=== PATIENT | male | born 1980 ===

== ENCOUNTER 2018-02-06 19:04 | Inpatient (IN) | payer OTHER ==
[2018-02-06] MEDS ORDERED: Sodium Chloride 0.9% 1,000 ML IV ONE (19:56)
--- NOTE | 2018-02-06 20:00 | C.PDOC ---
History Of Present Illness 37 year old male presents to the ER with a complaint of RLQ pain for the past 3 days. Patient states the pain was worse 3 days ago and since then has decreased but remains constant. Patent notes the pain worsens with movement, ambulation, and coughing. Denies vomiting, diarrhea, dysuria, hematuria, or any PMHx. Time Seen by Provider: 02/06/18 19:19 Chief Complaint (Nursing): Abdominal Pain History Per: Patient History/Exam Limitations: no limitations Onset/Duration Of Symptoms: Days Current Symptoms Are (Timing): Still Present Location Of Pain/Discomfort: RLQ Radiation Of Pain To:: None Quality Of Discomfort: Unable To Describe Associated Symptoms: denies: Vomiting, Diarrhea, Urinary Symptoms Exacerbating Factors: None Alleviating Factors: None Recent travel outside of the [place]: No Past Medical History Reviewed: Historical Data, Nursing Documentation, Vital Signs Vital Signs: Last Vital Signs Temp 98.9 F 02/06/18 23:00 Pulse 84 02/06/18 23:00 Resp 14 02/06/18 23:00 BP 130/80 02/06/18 23:00 Pulse Ox 100 02/06/18 23:28 - Medical History PMH: No Chronic Diseases Surgical History: No Surg Hx Family History: States: Unknown Family Hx - Social History Hx Alcohol Use: Yes Hx Substance Use: No - Immunization History Hx Tetanus Toxoid Vaccination: No Hx Influenza Vaccination: No Review Of Systems Except As Marked, All Systems Reviewed And Found Negative. Gastrointestinal: Positive for: Abdominal Pain Physical Exam - Physical Exam Appears: Non-toxic, Other (Comfortable) Skin: Normal Color, Warm, Dry Head: Atraumatic, Normacephalic Eye(s): bilateral: Normal Inspection Oral Mucosa: Moist Chest: Symmetrical, No Tenderness Cardiovascular: Rhythm Regular Respiratory: Normal Breath Sounds, No Rales, No Rhonchi, No Wheezing Gastrointestinal/Abdominal: Soft, Tenderness (RLQ, positive Mcburney's, positive Rovsing's), Guarding, Rebound Back: No CVA Tenderness Neurological/Psych: Oriented x3, Normal Speech ED Course And Treatment - Laboratory Results Result Diagrams: 02/06/18 20:20 02/06/18 20:20 O2 Sat by Pulse Oximetry: 100 (Room air) Pulse Ox Interpretation: Normal Progress Note: Blood work, UA, CT scan abd/pelvis ordered and reviewed. Patient given IV Morphine, IV NS bolus, IV Zosyn. 11:30pm- Patient initially was going to AMA, however he now states he is willing to stay in the hospital for observation and IV antibiotics. Patient will be admitted to medicine with surgery consult - perforated acute appendicitis. - Physician Consult Information Physician Contacted: Jose M Chang Outcome Of Conversation: Discussed patient with hospitalist, agrees with admission for acute appendicitis with likely perforation. Surgery resident paged to notify them that patient changed his mind and will be admitted. Disposition Counseled Patient/Family Regarding: Studies Performed, Diagnosis, Need For Followup, Rx Given - Disposition Disposition Time: 22:50 - Clinical Impression Clinical Impression: Acute appendicitis - Scribe Statement The provider has reviewed the documentation as recorded by the Scribterra Muller All medical record entries made by the Bharathiibterra were at my direction and personally dictated by me. I have reviewed the chart and agree that the record accurately reflects my personal performance of the history, physical exam, medical decision making, and the department course for this patient. I have also personally directed, reviewed, and agree with the discharge instructions and disposition.
[2018-02-06] MEDS ORDERED: Sodium Chloride 0.9% 1,000 ML ONE (20:06)
[2018-02-06] MEDS ORDERED: Morphine 4 MG/ML VIAL ONE (20:06)
[2018-02-06 20:24] LABS: BASO % 0.3 % (0.0-2.0); EOS % 0.3 % (0.0-4.0); HEMOGLOBIN 14.2 g/dL (12.0-18.0); LYMPH # 0.6 K/uL (1.0-4.3); MEAN CELL VOLUME 87.4 fL (80.0-94.0); MEAN CORPUSCULAR HEMOGLOBIN 30.6 pg (27.0-31.0); MEAN PLATELET VOLUME 7.4 fL (7.2-11.7); MONO # 0.3 K/uL (0.0-0.8); MONO % 3.3 % (0.0-10.0); NEUT # 7.8 K/uL (1.8-7.0); NEUT % 89.1 % (50.0-75.0); PLATELET COUNT 197 K/uL (130-400); RBC 4.66 Mil/uL (4.40-5.90); RED CELL DISTRIBUTION WIDTH 13.6 % (11.5-14.5); WHITE BLOOD COUNT 8.8 K/uL (4.8-10.8)
[2018-02-06 20:28] LABS: URINE BILIRUBIN NEGATIVE (NEGATIVE); URINE BLOOD 1+ (NEGATIVE); URINE CLARITY Clear (Clear); URINE COLOR Yellow (YELLOW); URINE GLUCOSE (UA) NORMAL (Normal); URINE LEUKOCYTE ESTERASE NEG Leu/uL (Negative); URINE PROTEIN 2+ mg/dL (NEGATIVE)
[2018-02-06 20:36] LABS: ALB/GLOB RATIO 1.1 (1.0-2.1); ALBUMIN 4.2 g/dL (3.5-5.0); ALT/SGPT 34 U/L (21-72); AST/SGOT 20 U/L (17-59); BLOOD UREA NITROGEN 10 mg/dL (9-20); CALCIUM 9.4 mg/dl (8.6-10.4); GFR NON-AFRICAN AMERICAN > 60; LIPASE 18 U/L (23-300)
[2018-02-06 21:02] LABS: BANDS 10 % (0-2); LYMPHOCYTE 8 % (20-40); MONOCYTE 4 % (0-10); NEUTROPHIL 78 % (50-75); TOTAL CELLS COUNTED 100
[2018-02-06 21:03] LABS: PLATELET ESTIMATE NORMAL (NORMAL)
[2018-02-06] MEDS ORDERED: Piperacillin/Tazobact 3.375 gm 100 ML IV STA (21:04)
[2018-02-06] MEDS ORDERED: Iodixanol 320 MG/ML 100 ML BOTTLE IV ONE (21:25)
[2018-02-06] MEDS ORDERED: Piperacillin/Tazobact 3.375 gm 100 ML IVPB ONE (21:28)
--- NOTE | 2018-02-06 22:54 | CP.PCM.CON ---
History of Present Illness - History of Present Illness History of Present Illness: General surgery consult note for Dr. Daly Chris, PGY-2 Pt S & E at bedside at 2040 37M w/no PMH consulted for RLQ ab pain x 3 days. Pt reports sudden onset of RLQ ab pain, sharp, severe, radiates to periumbilical area, intermittent, worsened by movement and deep inspiration. Pt reports pain has gotten better over the past few days. Admits to no appetite. Denies N & V, F & C, constipation, diarrhea, changes in urinary habits, chest pain, SOB, headache, dizziness, sore throat, other complaints. In ED, afebrile, no leukocytosis. CT ab w/findings of mucosal thickening in appendix, 1.1cm w/surrounding inflammation. Small amt of adjacent free fluid. Findings consistent with acute appendicitis. Cannot exclude rupture, no abscesses or free air. PMH: Denies PSH: Denies All :NKDA SH: Denies tobacco, illict drug use, lives in [facility], originally from [place], contractor Review of Systems - Review of Systems All systems: reviewed and no additional remarkable complaints except - Constitutional Constitutional: absent: Chills, Fever, Headache - EENT Nose/Mouth/Throat: absent: Sore Throat - Cardiovascular Cardiovascular: absent: Chest Pain - Gastrointestinal Gastrointestinal: Abdominal Pain. absent: Change in Bowel Habits, Constipation , Diarrhea, Nausea, Vomiting - Genitourinary Genitourinary: absent: Flank Pain - Musculoskeletal Musculoskeletal: absent: Back Pain - Integumentary Integumentary: absent: Rash - Psychiatric Psychiatric: Change in Appetite (decreased) Past Patient History - Infectious Disease Hx of Infectious Diseases: None - Past Social History Smoking Status: Never Smoked - PSYCHIATRIC Hx Substance Use: No Meds Home Medications: Home Medication List Medication Instructions Recorded Confirmed Type Ciprofloxacin [Cipro] 1 tab PO BID #20 tab 02/06/18 Rx Hydrocodone/Acetaminophen 1 each PO Q6 PRN #15 tablet 02/06/18 Rx [Hydrocodone-Acetamin 5-325 mg] metroNIDAZOLE [Flagyl] 500 mg PO TID #30 tab 02/06/18 Rx Allergies/Adverse Reactions: Allergies Allergy/AdvReac Type Severity Reaction Status Date / Time No Known Allergies Allergy Unverified 02/06/18 19:21 Physical Exam - Constitutional Appears: Non-toxic, No Acute Distress - Head Exam Head Exam: ATRAUMATIC, NORMAL INSPECTION, NORMOCEPHALIC - Eye Exam Eye Exam: EOMI, Normal appearance - ENT Exam ENT Exam: Mucous Membranes Moist, Normal Exam - Neck Exam Neck exam: Positive for: Full Rom, Normal Inspection - Respiratory Exam Respiratory Exam: Clear to Auscultation Bilateral, NORMAL BREATHING PATTERN. absent: Accessory Muscle Use, Rales, Rhonchi, Wheezes - Cardiovascular Exam Cardiovascular Exam: REGULAR RHYTHM, +S1, +S2 - GI/Abdominal Exam GI & Abdominal Exam: Guarding (RLQ), Normal Bowel Sounds, Soft, Tenderness (RLQ , periumbilical). absent: Distended (obese), Firm, Rebound, Rigid - Extremities Exam Extremities exam: Positive for: normal inspection. Negative for: pedal edema - Back Exam Back exam: NORMAL INSPECTION. absent: CVA tenderness (L), CVA tenderness (R) - Neurological Exam Neurological exam: Alert, CN II-XII Intact, Oriented x3 - Psychiatric Exam Psychiatric exam: Normal Affect, Normal Mood - Skin Skin Exam: Dry, Intact, Normal Color, Warm Results - Vital Signs Recent Vital Signs: Last Vital Signs Temp 98.4 F 02/06/18 19:17 Pulse 85 02/06/18 19:17 Resp 20 02/06/18 19:17 BP 154/95 H 02/06/18 19:17 Pulse Ox 100 02/06/18 20:47 - Labs Result Diagrams: 02/06/18 20:20 02/06/18 20:20 Labs: Laboratory Results - last 24 hr 02/06/18 02/06/18 02/06/18 20:20 20:20 20:20 WBC 8.8 RBC 4.66 Hgb 14.2 Hct 40.7 MCV 87.4 MCH 30.6 MCHC 35.0 RDW 13.6 Plt Count 197 MPV 7.4 Neut % (Auto) 89.1 H Lymph % (Auto) 7.0 L [place] % (Auto) 3.3 Eos % (Auto) 0.3 Baso % (Auto) 0.3 Neut # (Auto) 7.8 H Lymph # (Auto) 0.6 L [place] # (Auto) 0.3 Eos # (Auto) 0.0 Baso # (Auto) 0.0 Neutrophils % (Manual) 78 H Band Neutrophils % 10 H Lymphocytes % (Manual) 8 L Monocytes % (Manual) 4 Platelet Estimate Normal Sodium 140 Potassium 3.9 Chloride 102 Carbon Dioxide 25 Anion Gap 17 BUN 10 Creatinine 0.8 Est GFR ( Amer) > 60 Est GFR (Non-Af Amer) > 60 Random Glucose 124 H Calcium 9.4 Total Bilirubin 0.9 AST 20 ALT 34 Alkaline Phosphatase 105 Total Protein 8.0 Albumin 4.2 Globulin 3.8 Albumin/Globulin Ratio 1.1 Lipase 18 L Urine Color Yellow Urine Clarity Clear Urine pH 8.0 Ur Specific [place] 1.013 Urine Protein 2+ H Urine Glucose (UA) Normal Urine Ketones Negative Urine Blood 1+ H Urine Nitrate Negative Urine Bilirubin Negative Urine Urobilinogen 4.0 Ur Leukocyte Esterase Neg Urine WBC (Auto) < 1 Urine RBC (Auto) 1 Assessment & Plan - Assessment and Plan (Free Text) Assessment: 37M w/RLQ ab pain likely 2/2 ruptured appendicitis Plan: Recommend admission to med-surg IV Abx pain control IVF Anti-emetic PRN if pt not amenable to admission, will need IV Abx x 10 days, return to hospital if pain worsens EMRE Chris, PGY-2 - Date & Time Date: 02/06/18 Time: 22:57
--- NOTE | 2018-02-07 00:01 | CP.PCM.HP ---
<Dawson Saldivar - Last Filed: 02/07/18 00:18> History of Present Illness - History of Present Illness History of Present Illness: PGY2 Medicine H+P for Dr. Chang Patient is a 37 year old male with a past medical history of alcohol abuse (5 beers daily) presenting to the emergency room with a complaint of abdominal pain for 3 days. The pain is located in the right lower quadrant and is sharp in nature. The pain was most severe 2 days ago but has been improving yesterday and today. He was nauseous two days ago but it has since resolved. He never vomited. He is no longer experiencing pain at rest but the pain is still present when he is walking. He decided to come to the hospital tonight because the pain had not completely resolved and he wanted to make sure he was ok. Denies fevers, chills, nausea, vomiting, diarrhea, constipation, chest pain, shortness of breath, diarrhea, constipation, chest pain, shortness of breath, headache, numbness or tingling. PMH: alcohol abuse PSH: denies Family: non-contributory Social: denies tobacco, drinks 5 beers daily, denies illicit drug use Allergies: NKDA Meds: denies Present on Admission - Present on Admission Any Indicators Present on Admission: No Review of Systems - Review of Systems All systems: reviewed and no additional remarkable complaints except - Constitutional Constitutional: As Per HPI - EENT Eyes: As Per HPI Nose/Mouth/Throat: As Per HPI - Cardiovascular Cardiovascular: As Per HPI - Respiratory Respiratory: As Per HPI - Gastrointestinal Gastrointestinal: As Per HPI - Musculoskeletal Musculoskeletal: As Per HPI - Integumentary Integumentary: As Per HPI - Neurological Neurological: As Per HPI - Psychiatric Psychiatric: As Per HPI - Endocrine Endocrine: As Per HPI - Hematologic/Lymphatic Hematologic: As Per HPI Past Patient History - Infectious Disease Hx of Infectious Diseases: None - Past Social History Smoking Status: Never Smoked - PSYCHIATRIC Hx Substance Use: No Meds Home Medications: Home Medication List Medication Instructions Recorded Confirmed Type Ciprofloxacin [Cipro] 1 tab PO BID #20 tab 02/06/18 Rx Hydrocodone/Acetaminophen 1 each PO Q6 PRN #15 tablet 02/06/18 Rx [Hydrocodone-Acetamin 5-325 mg] metroNIDAZOLE [Flagyl] 500 mg PO TID #30 tab 02/06/18 Rx Allergies/Adverse Reactions: Allergies Allergy/AdvReac Type Severity Reaction Status Date / Time No Known Allergies Allergy Unverified 02/06/18 19:21 Physical Exam - Constitutional Appears: Well, Non-toxic, No Acute Distress - Head Exam Head Exam: ATRAUMATIC, NORMOCEPHALIC - Eye Exam Eye Exam: EOMI, Normal appearance, PERRL. absent: Scleral icterus Pupil Exam: NORMAL ACCOMODATION - ENT Exam ENT Exam: Mucous Membranes Moist - Neck Exam Neck exam: Negative for: Lymphadenopathy - Respiratory Exam Respiratory Exam: Clear to Auscultation Bilateral, NORMAL BREATHING PATTERN. absent: Accessory Muscle Use, Chest Wall Tenderness, Rales, Rhonchi, Wheezes, Respiratory Distress - Cardiovascular Exam Cardiovascular Exam: REGULAR RHYTHM, +S1, +S2 - GI/Abdominal Exam GI & Abdominal Exam: Soft. absent: Guarding, Rigid, Tenderness - Extremities Exam Extremities exam: Positive for: normal inspection, pedal pulses present. Negative for: calf tenderness, pedal edema - Neurological Exam Neurological exam: Alert, CN II-XII Intact, Oriented x3 - Psychiatric Exam Psychiatric exam: Normal Affect, Normal Mood - Skin Skin Exam: Dry, Warm Results - Vital Signs Recent Vital Signs: Last Vital Signs Temp 98.4 F 02/06/18 19:17 Pulse 85 02/06/18 19:17 Resp 20 02/06/18 19:17 BP 154/95 H 02/06/18 19:17 Pulse Ox 100 02/06/18 23:28 - Labs Result Diagrams: 02/06/18 20:20 02/06/18 20:20 Labs: Laboratory Results - last 24 hr 02/06/18 02/06/18 02/06/18 20:20 20:20 20:20 WBC 8.8 RBC 4.66 Hgb 14.2 Hct 40.7 MCV 87.4 MCH 30.6 MCHC 35.0 RDW 13.6 Plt Count 197 MPV 7.4 Neut % (Auto) 89.1 H Lymph % (Auto) 7.0 L [place] % (Auto) 3.3 Eos % (Auto) 0.3 Baso % (Auto) 0.3 Neut # (Auto) 7.8 H Lymph # (Auto) 0.6 L [place] # (Auto) 0.3 Eos # (Auto) 0.0 Baso # (Auto) 0.0 Neutrophils % (Manual) 78 H Band Neutrophils % 10 H Lymphocytes % (Manual) 8 L Monocytes % (Manual) 4 Platelet Estimate Normal Sodium 140 Potassium 3.9 Chloride 102 Carbon Dioxide 25 Anion Gap 17 BUN 10 Creatinine 0.8 Est GFR ( Amer) > 60 Est GFR (Non-Af Amer) > 60 Random Glucose 124 H Calcium 9.4 Total Bilirubin 0.9 AST 20 ALT 34 Alkaline Phosphatase 105 Total Protein 8.0 Albumin 4.2 Globulin 3.8 Albumin/Globulin Ratio 1.1 Lipase 18 L Urine Color Yellow Urine Clarity Clear Urine pH 8.0 Ur Specific [place] 1.013 Urine Protein 2+ H Urine Glucose (UA) Normal Urine Ketones Negative Urine Blood 1+ H Urine Nitrate Negative Urine Bilirubin Negative Urine Urobilinogen 4.0 Ur Leukocyte Esterase Neg Urine WBC (Auto) < 1 Urine RBC (Auto) 1 Assessment & Plan - Assessment and Plan (Free Text) Plan: Appendicitis General Surgery, Dr. Smiley * likely ruptured * medical management Abd/Pelvis CT 02/06/18: * mucosal thickening in appendix, 1.1cm w/surrounding inflammation. Small amt of adjacent free fluid. Findings consistent with acute appendicitis. Cannot exclude rupture, no abscesses or free air. afebrile Bandemia 10 - continue to monitor Lipase 18 NPO Medications: * Zosyn 3.375gm IVPB q6h (started on 02/06/18) * Morphine 2mg IVP q4h prn * Zofran 4mg IVP q6h prn * NS@125mL/hr Bandemia likely secondary to Appendicitis afebrile WBC 8.8, bands 10 continue to monitor Proteinuria/Hematuria UA protein 2+, blood 1+ Continue to monitor Alcohol Abuse CIWA (pt has never gone through withdrawal. last drink yesterday) counseled patient on cessation continue to monitor Medications: * Ativan 1mg IVP q3h prn Prophylactic Care Anticoag contraindicated due to potential that patient may need to be taken to OR if condition worsens SCDs Protonix 40mg IVP daily Case discussed with Dr. Charlene Petersenn PGY2 <Jose M Chang - Last Filed: 02/07/18 05:57> Results - Vital Signs Recent Vital Signs: Last Vital Signs Temp 99.3 F 02/07/18 01:37 Pulse 100 H 02/07/18 01:37 Resp 20 02/07/18 01:37 BP 137/82 02/07/18 01:37 Pulse Ox 98 02/07/18 01:37 - Labs Result Diagrams: 02/06/18 20:20 02/06/18 20:20 Labs: Laboratory Results - last 24 hr 02/06/18 02/06/18 02/06/18 20:20 20:20 20:20 WBC 8.8 RBC 4.66 Hgb 14.2 Hct 40.7 MCV 87.4 MCH 30.6 MCHC 35.0 RDW 13.6 Plt Count 197 MPV 7.4 Neut % (Auto) 89.1 H Lymph % (Auto) 7.0 L [place] % (Auto) 3.3 Eos % (Auto) 0.3 Baso % (Auto) 0.3 Neut # (Auto) 7.8 H Lymph # (Auto) 0.6 L [place] # (Auto) 0.3 Eos # (Auto) 0.0 Baso # (Auto) 0.0 Neutrophils % (Manual) 78 H Band Neutrophils % 10 H Lymphocytes % (Manual) 8 L Monocytes % (Manual) 4 Platelet Estimate Normal Sodium 140 Potassium 3.9 Chloride 102 Carbon Dioxide 25 Anion Gap 17 BUN 10 Creatinine 0.8 Est GFR ( Amer) > 60 Est GFR (Non-Af Amer) > 60 Random Glucose 124 H Calcium 9.4 Total Bilirubin 0.9 AST 20 ALT 34 Alkaline Phosphatase 105 Total Protein 8.0 Albumin 4.2 Globulin 3.8 Albumin/Globulin Ratio 1.1 Lipase 18 L Urine Color Yellow Urine Clarity Clear Urine pH 8.0 Ur Specific [place] 1.013 Urine Protein 2+ H Urine Glucose (UA) Normal Urine Ketones Negative Urine Blood 1+ H Urine Nitrate Negative Urine Bilirubin Negative Urine Urobilinogen 4.0 Ur Leukocyte Esterase Neg Urine WBC (Auto) < 1 Urine RBC (Auto) 1 Assessment & Plan - Date & Time Date: 02/07/18 (I have seen and examined the patient. I agree with the findings and plan of care as documented by Dr. Saldivar. Patient with acute appendicitis likely ruptured. Surgery consulted. Zosyn. Medical management for now. Blood cultures. [facility] protocol for alcohol abuse. Monitor for acute changes.) Time: 05:56 Attending/Attestation - Attestation I have personally seen and examined this patient.: Yes I have fully participated in the care of the patient.: Yes I have reviewed all pertinent clinical information: Yes
[2018-02-07] MEDS: Sodium Chloride 0.9% 1,000 ML IV SCH ×5 (01:16→20:35)
[2018-02-07 01:38] VITALS: RESP 20
[2018-02-07] MEDS: Piperacill/Tazo 3.375gm in Dex 3.375 GM/50 ML BAG IVPB SCH ×4 (02:53→22:19)
[2018-02-07 06:58] LABS: BASO % 0.2 % (0.0-2.0); EOS % 0.7 % (0.0-4.0); HEMOGLOBIN 13.5 g/dL (12.0-18.0); LYMPH # 0.6 K/uL (1.0-4.3); LYMPH % 9.8 % (20.0-40.0); MEAN CELL VOLUME 87.9 fL (80.0-94.0); MEAN CORPUSCULAR HEMOGLOBIN 30.7 pg (27.0-31.0); MEAN CORPUSCULAR HGB CONC 34.9 g/dL (33.0-37.0); MEAN PLATELET VOLUME 7.4 fL (7.2-11.7); MONO # 0.3 K/uL (0.0-0.8); MONO % 4.1 % (0.0-10.0); NEUT # 5.5 K/uL (1.8-7.0); NEUT % 85.2 % (50.0-75.0); NRBC % 0.3 % (0.0-2.0); PLATELET COUNT 177 K/uL (130-400); RBC 4.39 Mil/uL (4.40-5.90); RED CELL DISTRIBUTION WIDTH 13.4 % (11.5-14.5); WHITE BLOOD COUNT 6.5 K/uL (4.8-10.8)
--- NOTE | 2018-02-07 08:08 | CP.PCM.PN ---
Addendum entered and electronically signed by Mi Smiley MD 02/07/18 11: 38: Afebrile, VSS. Minimal pain, only tenderness to RLQ with firm palpation, improved since admission. Tolerated PO this morning. Would try to give one more day IV antibiotics, if stable can switch to po for discharge Original Note: Subjective - Date & Time of Evaluation Date of Evaluation: 02/07/18 Time of Evaluation: 08:06 - Subjective Subjective: General surgery consult note for Dr. Smiley-Lavern Chris, PGY-2 Pt S & E at bedside at 0720 Pt reports abdominal pain much improved, is thirsty. Denies N & V, F & C. No other complaints at this time Objective - Vital Signs/Intake and Output Vital Signs (last 24 hours): Temp Pulse Resp BP Pulse Ox 99.2 F 90 20 128/76 95 02/07/18 07:00 02/07/18 07:00 02/07/18 07:00 02/07/18 07:00 02/07/18 07:00 Intake and Output: 02/07/18 02/07/18 06:59 18:59 Intake Total 675 Balance 675 - Medications Medications: Current Medications Sodium Chloride (Sodium Chloride 0.9%) 1,000 mls @ 125 mls/hr IV .Q8H [facility] Last Admin: 02/07/18 01:16 Dose: 125 mls/hr Piperacillin Sod/Tazobactam Sod (Zosyn 3.375 Gm Iv Premix) 3.375 gm in 50 mls @ 100 mls/hr IVPB Q6H [facility] PRN Reason: Protocol Last Admin: 02/07/18 02:53 Dose: 100 mls/hr Lorazepam (Ativan) 1 mg IVP Q3H PRN PRN Reason: Symptoms of alcohol withdrawl Morphine Sulfate (Morphine) 2 mg IVP Q4H PRN PRN Reason: Pain, moderate (4-7) Ondansetron HCl (Zofran Inj) 4 mg IVP Q6 PRN PRN Reason: Nausea/Vomiting - Labs Labs: 02/07/18 06:34 02/06/18 20:20 - Constitutional Appears: Non-toxic, No Acute Distress - Head Exam Head Exam: ATRAUMATIC, NORMAL INSPECTION, NORMOCEPHALIC - Eye Exam Eye Exam: EOMI, Normal appearance - ENT Exam ENT Exam: Mucous Membranes Moist, Normal Exam - Neck Exam Neck Exam: Full ROM, Normal Inspection - Respiratory Exam Respiratory Exam: NORMAL BREATHING PATTERN - Cardiovascular Exam Cardiovascular Exam: REGULAR RHYTHM, +S1, +S2 - GI/Abdominal Exam GI & Abdominal Exam: Soft. absent: Distended (obese), Firm, Guarding, Rigid, Tenderness, Rebound - Extremities Exam Extremities Exam: Normal Inspection - Neurological Exam Neurological Exam: Alert, Awake, CN II-XII Intact, Oriented x3 - Psychiatric Exam Psychiatric exam: Normal Affect, Normal Mood - Skin Skin Exam: Dry, Intact, Normal Color, Warm Assessment and Plan - Assessment and Plan (Free Text) Assessment: 37M w/PMH sig for ETOH use w/RLQ ab pain 2/2 perf'd appendicitis-improved Plan: Cont IV Abx Pain control PRN Ok for clears Cont IVF Anti-emetic PRN OOBTC Ambulate Activity as tolerated Serial ab exams Monitor labs DW Dr. Baljit Chris, PGY-2
[2018-02-07 09:09] LABS: BANDS 6 % (0-2); LYMPHOCYTE 8 % (20-40); MONOCYTE 3 % (0-10); NEUTROPHIL 83 % (50-75); PLATELET ESTIMATE NORMAL (NORMAL); TOTAL CELLS COUNTED 100
[2018-02-07 09:12] LABS: ANISOCYTOSIS SLIGHT
[2018-02-07 09:15] LABS: LARGE PLATELETS PRESENT
--- NOTE | 2018-02-07 09:44 | CP.PCM.PN ---
Subjective - Date & Time of Evaluation Date of Evaluation: 02/07/18 Time of Evaluation: 09:30 - Subjective Subjective: Patient was seen and examined by me. He reports feeling a lot better and was wondering if he could go home today. He denied chest pain, denied shortness of breath, denied headache. Denied fevers, denied problems with bathroom. He says the right lower quadrant pain is significantly less. He has a job and wants to get back to work soon. I explained to him that his appendix had likely ruptured and he would require abx as well as further monitoring and IVF. He did not have elevated WBC but there is a left shift as well as bandemia. CT scan showed a 1.1 cm area at appendix. Objective - Vital Signs/Intake and Output Vital Signs (last 24 hours): Temp Pulse Resp BP Pulse Ox 99.2 F 90 20 128/76 95 02/07/18 07:00 02/07/18 07:00 02/07/18 07:00 02/07/18 07:00 02/07/18 07:00 Intake and Output: 02/07/18 02/07/18 06:59 18:59 Intake Total 675 Balance 675 - Medications Medications: Current Medications Sodium Chloride (Sodium Chloride 0.9%) 1,000 mls @ 125 mls/hr IV .Q8H [facility] Last Admin: 02/07/18 01:16 Dose: 125 mls/hr Piperacillin Sod/Tazobactam Sod (Zosyn 3.375 Gm Iv Premix) 3.375 gm in 50 mls @ 100 mls/hr IVPB Q6H [facility] PRN Reason: Protocol Last Admin: 02/07/18 02:53 Dose: 100 mls/hr Lorazepam (Ativan) 1 mg IVP Q3H PRN PRN Reason: Symptoms of alcohol withdrawl Morphine Sulfate (Morphine) 2 mg IVP Q4H PRN PRN Reason: Pain, moderate (4-7) Ondansetron HCl (Zofran Inj) 4 mg IVP Q6 PRN PRN Reason: Nausea/Vomiting - Labs Labs: 02/07/18 06:34 02/06/18 20:20 - Constitutional Appears: Well, Non-toxic, No Acute Distress - Head Exam Head Exam: NORMAL INSPECTION - Eye Exam Eye Exam: EOMI, Normal appearance - ENT Exam ENT Exam: Normal Exam - Respiratory Exam Respiratory Exam: Clear to Ausculation Bilateral, NORMAL BREATHING PATTERN - Cardiovascular Exam Cardiovascular Exam: REGULAR RHYTHM - GI/Abdominal Exam GI & Abdominal Exam: Soft, Tenderness. absent: Firm, Guarding, Rigid Additional comments: RLQ tenderness, I did not palpate deeply - Neurological Exam Neurological Exam: Alert, Awake Neuro motor strength exam: Left Upper Extremity: 5, Right Upper Extremity: 5, Left Lower Extremity: 5, Right Lower Extremity: 5 - Psychiatric Exam Psychiatric exam: Normal Affect, Normal Mood - Skin Skin Exam: Normal Color, Warm Assessment and Plan - Assessment and Plan (Free Text) Assessment: Appendicitis 02/07: Pain is better, he asked to go home however will need IV abx and further monitoring. We should check blood cultures. The patient is currently on IV Zosyn. The WBC is stable, but there is a left shift and bandemia. He remains on IVF, per surgery advance to [facility] General Surgery, Dr. Smiley * likely ruptured * medical management Abd/Pelvis CT 02/06/18: * mucosal thickening in appendix, 1.1cm w/surrounding inflammation. Small amt of adjacent free fluid. Findings consistent with acute appendicitis. Cannot exclude rupture, no abscesses or free air. Medications: * Zosyn 3.375gm IVPB q6h (started on 02/06/18) * Morphine 2mg IVP q4h prn * Zofran 4mg IVP q6h prn * NS@125mL/hr Bandemia 02/07: Decreased left shift and decreased bandemia. likely secondary to Appendicitis afebrile WBC 8.8, bands 10 continue to monitor Proteinuria/Hematuria UA protein 2+, blood 1+ Continue to monitor Alcohol Abuse 02/07: No shaking, no tremors overnight. Did not require IV ativan CIWA (pt has never gone through withdrawal. last drink yesterday) counseled patient on cessation continue to monitor Medications: * Ativan 1mg IVP q3h prn Prophylactic Care Anticoag contraindicated due to potential that patient may need to be taken to OR if condition worsens SCDs Protonix 40mg IVP daily
[2018-02-07 10:18] LABS: ALB/GLOB RATIO 1.1 (1.0-2.1); ALBUMIN 3.8 g/dL (3.5-5.0); ALT/SGPT 27 U/L (21-72); AST/SGOT 16 U/L (17-59); BLOOD UREA NITROGEN 10 mg/dL (9-20); CALCIUM 8.3 mg/dl (8.6-10.4); GFR NON-AFRICAN AMERICAN > 60
--- NOTE | 2018-02-07 13:12 | CT ---
Date of service: 02/06/2018 PROCEDURE: CT Abdomen and Pelvis. HISTORY: Right lower quadrant pain. Rule out appendicitis COMPARISON: None. TECHNIQUE: Contiguous axial images of the abdomen and performed following intravenous injection of approximately 100 cc Visipaque 320 contrast material. Additional 2D sagittal and coronal reformats generated. This CT exam was performed using one or more of the following dose reduction techniques: Automated exposure control, adjustment of the mA and/or kV according to patient size, and/or use of iterative reconstruction technique. Radiation dose: Total exam DLP = 1099.19 mGy-cm.. FINDINGS: LOWER THORAX: Heart size is within range of normal. No significant pericardial effusion. Small hiatal hernia. Elliptical shaped areas of consolidation both lung bases likely representing atelectasis however infiltrates not excluded. There also linear areas of atelectasis in the left lingular region. No evidence of effusion or basilar pneumothorax. The Bibasilar atelectasis LIVER: Liver is enlarged measuring just over 27 cm in CC dimension. Mild diffuse fatty hepatic infiltration. No obvious hepatic mass, collection or calcification seen on this study. Portal and splenic veins are opacified. GALLBLADDER AND BILE DUCTS: Suspect sludge within the gallbladder. PANCREAS: Unremarkable. No mass. No ductal dilatation. SPLEEN: Unremarkable. No splenomegaly. ADRENALS: No adrenal lesions KIDNEYS AND URETERS: Kidneys demonstrate symmetric nephrograms. . 4 mm nonobstructing calculus mid pole collecting system right kidney. No evidence of hydronephrosis. Probable mildly hyperdense cyst upper pole right kidney measuring approximately 2.5 cm with Hounsfield units in the mid teens. 2nd smaller of slightly hyperdense cyst measuring 10 mm anterior aspect midpole right kidney. BLADDER: Urinary bladder incompletely distended which presumably accounts for slight thick-walled appearance. Muscular hypertrophy may contribute. REPRODUCTIVE: Unremarkable. APPENDIX: The appendix is dilated measuring up to 1.27 cm with mucosal thickening and surrounding inflammation. Findings are consistent with acute appendicitis. Early rupture cannot be excluded. There are infiltration changes and a small amount of fluid in the surrounding mesentery. There is also what appears represent reactive wall thickening of the adjacent cecum and possibly the terminal ileum as well. BOWEL: Stomach is incompletely distended. See above discussion for additional details. No evidence of acute mechanical small bowel obstruction. PERITONEUM: Unremarkable. No fluid collection. No free air. Small fat containing umbilical hernia. The small fat containing bilateral inguinal hernias. LYMPH NODES: Multiple small nonspecific retroperitoneal lymph nodes and scattered mesenteric lymph nodes are present. VASCULATURE: Unremarkable. No aortic aneurysm. BONES: Mild multilevel degenerative spondylosis of the lower thoracic and lumbar spine. OTHER FINDINGS: None. IMPRESSION: Findings consistent with acute appendicitis with surrounding infiltration and small amount of fluid. Rule out micro perforation or early rupture. Elliptical shaped bibasilar consolidative changes likely representing atelectasis though infiltrates not excluded. Multiple small nonspecific retroperitoneal lymph nodes and scattered mesenteric lymph nodes. Suspect sludge concordant preliminary results provided by overnight radiology service Concurrent
[2018-02-08] MEDS: Sodium Chloride 0.9% 1,000 ML IV SCH (03:17)
[2018-02-08] MEDS: Piperacill/Tazo 3.375gm in Dex 3.375 GM/50 ML BAG IVPB SCH ×3 (03:21→14:42)
[2018-02-08] MEDS ORDERED: Sodium Chloride 0.9% 1,000 ML IV SCH (08:00)
[2018-02-08 08:09] VITALS: BP 124/79; PULSE 90; TEMP 98; O2SAT 98
--- NOTE | 2018-02-08 08:16 | CP.PCM.PN ---
Subjective - Date & Time of Evaluation Date of Evaluation: 02/08/18 Time of Evaluation: 08:15 - Subjective Subjective: General surgery progress note for Dr. Daly Chris, PGY-2 Pt S & E at bedside at 0630 Pt reports abdominal pain resolved, tolerating fluids. Denies N & V, F & C. Objective - Vital Signs/Intake and Output Vital Signs (last 24 hours): Temp Pulse Resp BP Pulse Ox 98.0 F 90 20 124/79 98 02/08/18 07:00 02/08/18 07:00 02/08/18 07:00 02/08/18 07:00 02/08/18 07:00 Intake and Output: 02/08/18 02/08/18 06:59 18:59 Intake Total 1800 Balance 1800 - Medications Medications: Current Medications Piperacillin Sod/Tazobactam Sod (Zosyn 3.375 Gm Iv Premix) 3.375 gm in 50 mls @ 100 mls/hr IVPB Q6H KISHAN PRN Reason: Protocol Last Admin: 02/08/18 03:21 Dose: 100 mls/hr Lorazepam (Ativan) 1 mg IVP Q3H PRN PRN Reason: Symptoms of alcohol withdrawl Morphine Sulfate (Morphine) 2 mg IVP Q4H PRN PRN Reason: Pain, moderate (4-7) Ondansetron HCl (Zofran Inj) 4 mg IVP Q6 PRN PRN Reason: Nausea/Vomiting - Labs Labs: 02/07/18 06:34 02/07/18 09:55 - Constitutional Appears: Non-toxic, No Acute Distress - Head Exam Head Exam: ATRAUMATIC, NORMAL INSPECTION, NORMOCEPHALIC - Eye Exam Eye Exam: EOMI, Normal appearance - ENT Exam ENT Exam: Mucous Membranes Moist, Normal Exam - Neck Exam Neck Exam: Full ROM, Normal Inspection - Respiratory Exam Respiratory Exam: NORMAL BREATHING PATTERN - Cardiovascular Exam Cardiovascular Exam: REGULAR RHYTHM, +S1, +S2 - GI/Abdominal Exam GI & Abdominal Exam: Soft. absent: Distended (obese), Firm, Guarding, Rigid, Tenderness - Extremities Exam Extremities Exam: Normal Inspection - Neurological Exam Neurological Exam: Alert, Awake, CN II-XII Intact, Oriented x3 - Psychiatric Exam Psychiatric exam: Normal Affect, Normal Mood - Skin Skin Exam: Dry, Intact, Normal Color, Warm Assessment and Plan - Assessment and Plan (Free Text) Assessment: 37M w/RLQ ab pain 2/2 microperforated appendicitis Plan: Advance to regular diet Pain control PRN OOBTC Ambulate d/c IVF Ok to d/c from surgical standpoint on PO abx x 7 days, if tolerates diet DW Dr. Baljit Chris, PGY-2
[2018-02-08 08:18] LABS: BASO # 0.1 K/uL (0.0-0.2); BASO % 1.1 % (0.0-2.0); EOS # 0.1 K/uL (0.0-0.7); EOS % 1.7 % (0.0-4.0); LYMPH # 0.7 K/uL (1.0-4.3); LYMPH % 13.5 % (20.0-40.0); MEAN CELL VOLUME 86.6 fL (80.0-94.0); MEAN CORPUSCULAR HGB CONC 35.8 g/dL (33.0-37.0); MEAN PLATELET VOLUME 7.1 fL (7.2-11.7); MONO # 0.4 K/uL (0.0-0.8); MONO % 8.1 % (0.0-10.0); NEUT # 4.2 K/uL (1.8-7.0); NEUT % 75.6 % (50.0-75.0); RBC 3.87 Mil/uL (4.40-5.90); RED CELL DISTRIBUTION WIDTH 13.7 % (11.5-14.5); WHITE BLOOD COUNT 5.5 K/uL (4.8-10.8)
[2018-02-08 10:11] LABS: ALBUMIN 3.5 g/dL (3.5-5.0); ALT/SGPT 30 U/L (21-72); AST/SGOT 25 U/L (17-59); BLOOD UREA NITROGEN 9 mg/dL (9-20); CALCIUM 8.4 mg/dl (8.6-10.4); GFR NON-AFRICAN AMERICAN > 60
--- NOTE | 2018-02-08 13:21 | CP.PCM.DIS ---
<Thanh Crenshaw - Last Filed: 02/08/18 19:43> Provider - Provider Date of Admission: 02/06/18 23:29 Attending physician: Yang Shipman DO Time Spent in preparation of Discharge (in minutes): 40 Hospital Course - Lab Results Lab Results: Micro Results 02/07/18 10:39 Blood-Venous Blood Culture - Preliminary NO GROWTH AFTER 24 HOURS Most Recent Lab Values WBC 5.5 K/uL (4.8-10.8) 02/08/18 08:06 RBC 3.87 Mil/uL (4.40-5.90) L 02/08/18 08:06 Hgb 12.0 g/dL (12.0-18.0) 02/08/18 08:06 Hct 33.5 % (35.0-51.0) L 02/08/18 08:06 MCV 86.6 fL (80.0-94.0) 02/08/18 08:06 MCH 31.0 pg (27.0-31.0) 02/08/18 08:06 MCHC 35.8 g/dL (33.0-37.0) 02/08/18 08:06 RDW 13.7 % (11.5-14.5) 02/08/18 08:06 Plt Count 196 K/uL (130-400) 02/08/18 08:06 MPV 7.1 fL (7.2-11.7) L 02/08/18 08:06 Neut % (Auto) 75.6 % (50.0-75.0) H 02/08/18 08:06 Lymph % (Auto) 13.5 % (20.0-40.0) L 02/08/18 08:06 [place] % (Auto) 8.1 % (0.0-10.0) 02/08/18 08:06 Eos % (Auto) 1.7 % (0.0-4.0) 02/08/18 08:06 Baso % (Auto) 1.1 % (0.0-2.0) 02/08/18 08:06 Neut # (Auto) 4.2 K/uL (1.8-7.0) 02/08/18 08:06 Lymph # (Auto) 0.7 K/uL (1.0-4.3) L 02/08/18 08:06 [place] # (Auto) 0.4 K/uL (0.0-0.8) 02/08/18 08:06 Eos # (Auto) 0.1 K/uL (0.0-0.7) 02/08/18 08:06 Baso # (Auto) 0.1 K/uL (0.0-0.2) 02/08/18 08:06 Neutrophils % (Manual) 83 % (50-75) H 02/07/18 06:34 Band Neutrophils % 6 % (0-2) H 02/07/18 06:34 Lymphocytes % (Manual) 8 % (20-40) L 02/07/18 06:34 Monocytes % (Manual) 3 % (0-10) 02/07/18 06:34 Platelet Estimate Normal (NORMAL) 02/07/18 06:34 Large Platelets Present 02/07/18 06:34 Anisocytosis (manual) Slight 02/07/18 06:34 Sodium 139 mmol/L (132-148) 02/08/18 08:06 Potassium 3.9 mmol/L (3.6-5.2) 02/08/18 08:06 Chloride 106 mmol/L (98-107) 02/08/18 08:06 Carbon Dioxide 24 mmol/L (22-30) 02/08/18 08:06 Anion Gap 14 (10-20) 02/08/18 08:06 BUN 9 mg/dL (9-20) 02/08/18 08:06 Creatinine 0.8 mg/dL (0.8-1.5) 02/08/18 08:06 Est GFR ( Amer) > 60 02/08/18 08:06 Est GFR (Non-Af Amer) > 60 02/08/18 08:06 Random Glucose 127 mg/dL (75-110) H 02/08/18 08:06 Calcium 8.4 mg/dl (8.6-10.4) L 02/08/18 08:06 Total Bilirubin 0.7 mg/dL (0.2-1.3) 02/08/18 08:06 AST 25 U/L (17-59) 02/08/18 08:06 ALT 30 U/L (21-72) 02/08/18 08:06 Alkaline Phosphatase 102 U/L (38-126) 02/08/18 08:06 Total Protein 6.9 g/dL (6.3-8.3) 02/08/18 08:06 Albumin 3.5 g/dL (3.5-5.0) 02/08/18 08:06 Globulin 3.4 gm/dL (2.2-3.9) 02/08/18 08:06 Albumin/Globulin Ratio 1.0 (1.0-2.1) 02/08/18 08:06 Lipase 18 U/L (23-300) L 02/06/18 20:20 Urine Color Yellow (YELLOW) 02/06/18 20:20 Urine Clarity Clear (Clear) 02/06/18 20:20 Urine pH 8.0 (5.0-8.0) 02/06/18 20:20 Ur Specific [place] 1.013 (1.003-1.030) 02/06/18 20:20 Urine Protein 2+ mg/dL (NEGATIVE) H 02/06/18 20:20 Urine Glucose (UA) Normal mg/dL (Normal) 02/06/18 20:20 Urine Ketones Negative mg/dL (NEGATIVE) 02/06/18 20:20 Urine Blood 1+ (NEGATIVE) H 02/06/18 20:20 Urine Nitrate Negative (NEGATIVE) 02/06/18 20:20 Urine Bilirubin Negative (NEGATIVE) 02/06/18 20:20 Urine Urobilinogen 4.0 mg/dL (0.2-1.0) 02/06/18 20:20 Ur Leukocyte Esterase Neg [place]/uL (Negative) 02/06/18 20:20 Urine WBC (Auto) < 1 /hpf (0-5) 02/06/18 20:20 Urine RBC (Auto) 1 /hpf (0-3) 02/06/18 20:20 - Hospital Course Hospital Course: HPI: Patient is a 37 year old male with a past medical history of alcohol abuse (5 beers daily) presenting to the emergency room with a complaint of abdominal pain for 3 days. The pain is located in the right lower quadrant and is sharp in nature. The pain was most severe 2 days ago but has been improving yesterday and today. He was nauseous two days ago but it has since resolved. He never vomited. He is no longer experiencing pain at rest but the pain is still present when he is walking. He decided to come to the hospital tonight because the pain had not completely resolved and he wanted to make sure he was ok. Denies fevers, chills, nausea, vomiting, diarrhea, constipation, chest pain, shortness of breath, diarrhea, constipation, chest pain, shortness of breath, headache, numbness or tingling. Hospital Course: Patient was admitted on 02/06/18 with complaint of worsening abdominal pain for 3 days. Surgery consult (Dr. Smiley) revealed abdominal pain likely due to ruptured appendicitis and recommended medical management. Abdominal/pelvis CT () revealed mucosal thickening of the appendix with surrounding inflammation consistent with appendicitis. Patient was managed with Zosyn 3.375 mg in 50mL IVPB q6H, Zofran 4 mg IVP q6 PRN, ativan 1 mg IVP q3H PRN, and Morphine 2 mg IVP q4H PRN with improved symptoms. No leukocytosis was noted on labs but there was a left shift with bandemia likely secondary to appendicitis. UA on admission revealed proteinuria and hematuria, but negative for UTI. Patient had no alcohol withdrawal symptoms and did not require Ativan. Patient reports pain has resolved and tolerated regular diet. Patient denies any nausea, vomiting, diarrhea, shortness of breath, chest pain, headache, or fever. Patient was cleared from surgical standpoint on 7 day course of Ciprofloxacin and Flagyl. Patient is medically stable for discharge home, per Dr. Shipman. Patient is to follow up at [facility] [place] clinic 1 week after discharge. Walk-in appointment made with clinic on 02/16/18 and patient was instructed of importance of follow up. Patient to start the following medications, as instructed: Ciprofloxacin 500 mg two times a day, for a total of 7 days Metronidazole 500 mg two times a day, for a total of 7 days Please return to hospital if you start to have fevers, chills or if your abdominal pain increases. This is a summary of hospital course. For full detail, please refer to patient' s EMR. Discharge Exam - Head Exam Head Exam: ATRAUMATIC, NORMAL INSPECTION, NORMOCEPHALIC Discharge Plan - Discharge Medications Prescriptions: Ciprofloxacin HCl [Cipro] 500 mg PO BID #14 tablet Metronidazole [Flagyl] 500 mg PO BID #14 tablet - Follow Up Plan Condition: GOOD Disposition: HOME/ ROUTINE Instructions: Appendicitis, Adult (DC) Additional Instructions: Patient is medically stable for discharge home, per Dr. Shipman. Patient is to follow up at [facility] [place] clinic 1 week after discharge. Appointment has been provided. Patient to start the following medications, as instructed: Ciprofloxacin 500 mg two times a day, for a total of 7 days Metronidazole 500 mg two times a day, for a total of 7 days Please return to hospital if you start to have fevers, chills or if your abdominal pain increases. El paciente es mdicamente estable para el celia domiciliaria, segn el Dr. Shipman. El paciente debe hacer un seguimiento en la clnica de Joseph 1 semana despus del celia. La manuel de los santos sido provista. Paciente para comenzar los siguientes medicamentos, segn las instrucciones: Ciprofloxacina 500 mg dos veces al da, olga lidia un total de 7 marmolejo Metronidazol 500 mg dos veces al da, olga lidia un total de 7 marmolejo Por favor regrese al hospital si comienza a tener fiebre, escalofros o si aumenta davis dolor abdominal. Referrals: [facility] [Outside] <Yang Shipman - Last Filed: 02/09/18 08:20> Provider - Provider Date of Admission: 02/06/18 23:29 Attending physician: Yang Shipman, DO Hospital Course - Lab Results Lab Results: Micro Results 02/07/18 10:39 Blood-Venous Blood Culture - Preliminary NO GROWTH AFTER 24 HOURS Most Recent Lab Values WBC 5.5 K/uL (4.8-10.8) 02/08/18 08:06 RBC 3.87 Mil/uL (4.40-5.90) L 02/08/18 08:06 Hgb 12.0 g/dL (12.0-18.0) 02/08/18 08:06 Hct 33.5 % (35.0-51.0) L 02/08/18 08:06 MCV 86.6 fL (80.0-94.0) 02/08/18 08:06 MCH 31.0 pg (27.0-31.0) 02/08/18 08:06 MCHC 35.8 g/dL (33.0-37.0) 02/08/18 08:06 RDW 13.7 % (11.5-14.5) 02/08/18 08:06 Plt Count 196 K/uL (130-400) 02/08/18 08:06 MPV 7.1 fL (7.2-11.7) L 02/08/18 08:06 Neut % (Auto) 75.6 % (50.0-75.0) H 02/08/18 08:06 Lymph % (Auto) 13.5 % (20.0-40.0) L 02/08/18 08:06 [place] % (Auto) 8.1 % (0.0-10.0) 02/08/18 08:06 Eos % (Auto) 1.7 % (0.0-4.0) 02/08/18 08:06 Baso % (Auto) 1.1 % (0.0-2.0) 02/08/18 08:06 Neut # (Auto) 4.2 K/uL (1.8-7.0) 02/08/18 08:06 Lymph # (Auto) 0.7 K/uL (1.0-4.3) L 02/08/18 08:06 [place] # (Auto) 0.4 K/uL (0.0-0.8) 02/08/18 08:06 Eos # (Auto) 0.1 K/uL (0.0-0.7) 02/08/18 08:06 Baso # (Auto) 0.1 K/uL (0.0-0.2) 02/08/18 08:06 Neutrophils % (Manual) 83 % (50-75) H 02/07/18 06:34 Band Neutrophils % 6 % (0-2) H 02/07/18 06:34 Lymphocytes % (Manual) 8 % (20-40) L 02/07/18 06:34 Monocytes % (Manual) 3 % (0-10) 02/07/18 06:34 Platelet Estimate Normal (NORMAL) 02/07/18 06:34 Large Platelets Present 02/07/18 06:34 Anisocytosis (manual) Slight 02/07/18 06:34 Sodium 139 mmol/L (132-148) 02/08/18 08:06 Potassium 3.9 mmol/L (3.6-5.2) 02/08/18 08:06 Chloride 106 mmol/L (98-107) 02/08/18 08:06 Carbon Dioxide 24 mmol/L (22-30) 02/08/18 08:06 Anion Gap 14 (10-20) 02/08/18 08:06 BUN 9 mg/dL (9-20) 02/08/18 08:06 Creatinine 0.8 mg/dL (0.8-1.5) 02/08/18 08:06 Est GFR ( Amer) > 60 02/08/18 08:06 Est GFR (Non-Af Amer) > 60 02/08/18 08:06 Random Glucose 127 mg/dL (75-110) H 02/08/18 08:06 Calcium 8.4 mg/dl (8.6-10.4) L 02/08/18 08:06 Total Bilirubin 0.7 mg/dL (0.2-1.3) 02/08/18 08:06 AST 25 U/L (17-59) 02/08/18 08:06 ALT 30 U/L (21-72) 02/08/18 08:06 Alkaline Phosphatase 102 U/L (38-126) 02/08/18 08:06 Total Protein 6.9 g/dL (6.3-8.3) 02/08/18 08:06 Albumin 3.5 g/dL (3.5-5.0) 02/08/18 08:06 Globulin 3.4 gm/dL (2.2-3.9) 02/08/18 08:06 Albumin/Globulin Ratio 1.0 (1.0-2.1) 02/08/18 08:06 Lipase 18 U/L (23-300) L 02/06/18 20:20 Urine Color Yellow (YELLOW) 02/06/18 20:20 Urine Clarity Clear (Clear) 02/06/18 20:20 Urine pH 8.0 (5.0-8.0) 02/06/18 20:20 Ur Specific [place] 1.013 (1.003-1.030) 02/06/18 20:20 Urine Protein 2+ mg/dL (NEGATIVE) H 02/06/18 20:20 Urine Glucose (UA) Normal mg/dL (Normal) 02/06/18 20:20 Urine Ketones Negative mg/dL (NEGATIVE) 02/06/18 20:20 Urine Blood 1+ (NEGATIVE) H 02/06/18 20:20 Urine Nitrate Negative (NEGATIVE) 02/06/18 20:20 Urine Bilirubin Negative (NEGATIVE) 02/06/18 20:20 Urine Urobilinogen 4.0 mg/dL (0.2-1.0) 02/06/18 20:20 Ur Leukocyte Esterase Neg [place]/uL (Negative) 02/06/18 20:20 Urine WBC (Auto) < 1 /hpf (0-5) 02/06/18 20:20 Urine RBC (Auto) 1 /hpf (0-3) 02/06/18 20:20 Attending/Attestation - Attestation I have personally seen and examined this patient.: Yes I have fully participated in the care of the patient.: Yes I have reviewed all pertinent clinical information, including history, physical exam and plan: Yes Notes (Text): 02/09/18 08:15 Medical attending: Patient was seen and examined by me. Agree with the above note by the resident. The patient was able to readily ambulate in the hallway and in the room. He was not in any distress, he denied fevers and chills. He was also tolerating his diet as well. The patient was eager to go back to work - we gave him a work note and also explained to the patient to avoid heavy lifting if possible for the next few days at least. Further more he should take the abx even if he feels well. We encouraged the patient to follow up in the [facility] if possible - he says he is merely travelling through the area and not from around here. thank you Yang Shipman
== END 2018-02-08 16:12 | disposition home or self-care (01) | DRG 895 ==
LOC: C.ER 19:04 → C.9E 23:29 → C.6T 02-07 00:29 → C.5S 02-07 14:43
PROVIDERS: ADMIT Hospitalist; ATTEND Hospitalist
DX: K35.2 Acute appendicitis with generalized peritonitis (principal); D72.825 Bandemia